=== PATIENT | female | born 1935 | race Caucasian/White ===

== ENCOUNTER 2017-08-18 23:07 | Emergency (ER) | payer MEDICARE ==
[~2017-08-18 23:07] MED LIST: AEC81 PO; AMLO10TA2 PO; ATOR20TA65 PO; CLOP75TA14 PO; DABI150C PO; HYDR-2534 PO; METO-391 PO; METO-409 PO; QUIN40TA19 PO; RANI150T7 PO
[2017-08-18] MEDS ORDERED: ONDANSETRON HCL 4 MG/2 ML VIAL ONE (23:36)
[2017-08-18] MEDS ORDERED: METOPROLOL TARTRATE 1 MG/ML 5ML VIAL IV ONE (23:36)
[2017-08-18] MEDS ORDERED: LORAZEPAM 2 MG/ML 1 ML VIAL ONE (23:40)
[2017-08-18 23:52] LABS: BASOPHILS % (AUTO) 0.4 % (0.0-5.0); HEMATOCRIT 35.2 % (36-48); MEAN CORPUSCULAR HEMOGLOBIN 30.3 pg (27.0-33.0); MONOCYTES % (AUTO) 5.9 % (3.0-13.0); NEUTROPHILS % (AUTO) 87.4 % (40.0-77.0); PLATELET COUNT (AUTO) 229 K/uL (130-400); RED BLOOD CELL COUNT(AUTO) 3.96 MIL/uL (4.00-5.50); RED CELL DISTRIBUTION WIDTH 14.8 % (11.0-15.5); WHITE BLOOD COUNT (AUTO) 10.7 K/uL (4.8-10.8)
[2017-08-19] LABS: CREATININE 0.9 mg/dL (0.5-1.5); POTASSIUM 3.9 mmol/L (3.5-5.1)
[2017-08-19 00:01] LABS: INR 1.87 (0.85-1.15); PARTIAL THROMBOPLASTIN TIME 32.7 SEC (26.3-35.5); PROTHROMBIN TIME 19.4 SEC (9.6-11.6)
[2017-08-19 00:10] LABS: LYMPHOCYTES % (AUTO) 5.3 % (21.0-51.0)
[2017-08-19] MEDS ORDERED: ONDANSETRON HCL 4 MG/2 ML VIAL ONE (01:36)
[2017-08-19] MEDS ORDERED: LORAZEPAM 2 MG/ML 1 ML VIAL ONE (01:55)
== END 2017-08-19 03:14 | disposition home or self-care (01) ==
LOC: EDH 23:07
DX: R04.0 Epistaxis (principal); I10 Essential (primary) hypertension; I25.810 Atherosclerosis of coronary artery bypass graft(s) without angina pectoris; Z88.2 Allergy status to sulfonamides; Z88.1 Allergy status to other antibiotic agents; Z88.8 Allergy status to other drugs, medicaments and biological substances; Z95.1 Presence of aortocoronary bypass graft
CPT/HCPCS: 30901; 36415; 80048; 85025; 85610; 85730; 96374; 96375; 96376; 99284; J2060 ×2; J2405 ×2; J3490